=== PATIENT | male | born 1960 | race Caucasian/White ===

== ENCOUNTER → 2017-09-23 | Outpatient (CLI) | payer OTHER ==
[2017-09-23 09:22] LABS: ALT 39 U/L (21-72); AST 30 U/L (17-59); Alkaline Phosphatase 71 U/L (38-126); Anion Gap 7 mmol/L; Blood Urea Nitrogen 18 mg/dL (9-20); Calcium 9.8 mg/dL (8.4-10.2); Carbon Dioxide 31 mmol/L (22-30); Chloride 101 mmol/L (98-107); Cholesterol 120 mg/dL (<200); Glucose 122 mg/dL (74-99); HDL Cholesterol 57 mg/dL (40-60); LDL Cholesterol,Calculated 50 mg/dL (0-99); Potassium 4.4 mmol/L (3.5-5.1); Sodium 139 mmol/L (137-145); Total Bilirubin 0.4 mg/dL (0.2-1.3); Total Protein 6.7 g/dL (6.3-8.2); Triglycerides 63 mg/dL (<150)
== END | disposition home or self-care (01) ==
LOC: LABWHC1 08:09
PROVIDERS: ATTEND Internal Medicine Endocrinology, Diabetes & Metabolism
DX: E10.65 Type 1 diabetes mellitus with hyperglycemia (principal)
CPT/HCPCS: 36415; 80053; 80061; 82043; 82533; 82570; 84403; 84443

== ENCOUNTER 2018-08-28 21:01 | Emergency (ER) | payer OTHER ==
[2018-08-28 21:31] VITALS: BP 129/57; PULSE 104; RESP 18; TEMP 102.9
--- NOTE | 2018-08-28 21:56 | ED ---
General Adult HPI - General Chief complaint: Shortness of Breath Stated complaint: chest congestion/asthma Time Seen by Provider: 08/28/18 21:34 Source: patient Mode of arrival: ambulatory Limitations: no limitations - History of Present Illness Initial comments: Dictation was produced using [employer] dictation software. please excuse any grammatical, word or spelling errors. Chief Complaint: 57-year-old male with past medical history type 1 diabetes presents with persistent cough History of Present Illness: Patient is 57-year-old male. He is in town visiting family. Patient normally lives in [place]. Patient states that his symptoms began approximately one month ago. His symptoms consisted of clear rhinorrhea, cough and mild sore throat. States that he has a history of asthma as well. His asthma began acting up. Says primary care physician proximal one week after the onset of symptoms. His primary care physician started him on prednisone, and azithromycin. Patient just finished his antibiotics proximally one week ago. She was improved until about 2 days after that when he felt like his symptoms were recurring and have been slightly worse. He continue taking his Ventolin inhaler. 2 days ago he took 60 mg of prednisone that he had left over. He took another 40 mg of prednisone today. Patient is a frequent traveler and feels as though he is exposed to a lot of illnesses on airplane. The ROS documented in this emergency department record has been reviewed and confirmed by me. Those systems with pertinent positive or negative responses have been documented in the HPI. All other systems are other negative and/or noncontributory. PHYSICAL EXAM: General Impression: Alert and oriented x3, not in acute distress HEENT: Normocephalic atraumatic, extra-ocular movements intact, pupils equal and reactive to light bilaterally, mucous membranes moist. Cardiovascular: Heart regular rate and rhythm, S1&S2 audible, no murmurs, rubs or gallops Chest: Bilateral wheezing Abdomen: Bowel sounds present, abdomen soft, non-tender, non-distended, no organomegaly Musculoskeletal: Pulses present and equal in all extremities, no peripheral edema Motor: Power 5/5 bilaterally, no focal deficits noted Neurological: CN II-XII grossly intact, no focal motor or sensory deficits noted Skin: Intact with no visualized rashes Psych: Normal affect and mood ED course: 57-year-old male. He presents today with persistent coughing. He did have a convalescent face that occurred last week until when his symptoms abruptly recurred however felt to be a little bit worse than vital signs upon arrival shows temperature 12.9, heart rate of 104, rest of vital signs within acceptable limits.Patient's symptoms consistent with viral URI. Chest x-ray is unremarkable. There is no radiographic evidence of bacterial infection. No clinical symptoms or physical examination to suggest bacterial infection. Patient has acute exacerbation of asthma secondary to viral URI. He does have an inhaler at home. He does have prednisone at home. He is advised to continue taking his prednisone for another 2 days burst fashion. He does have good follow-up with primary care physician. Patient otherwise feeling well. Patient did request RSV test which was positive. He does have other children at home. This point patient doesn't have any localizing symptoms to indicate further workup. Patient states he can come back if anything changes. Patient understandable agreeable to plan. Patient be discharged. - Related Data Home Medications Medication Instructions Recorded Confirmed Atorvastatin [Lipitor] 40 mg PO HS 08/28/18 08/28/18 Insulin Lispro [humaLOG Kwikpen] See Protocol SQ ACHS 08/28/18 08/28/18 Insulin NPH Human Isophane See Protocol SQ DAILY 08/28/18 08/28/18 [humuLIN N] Psyllium Husk 100% [Metamucil 6 gm PO BID 08/28/18 08/28/18 Packet] Tadalafil [Cialis] 10 mg PO DAILY PRN 08/28/18 08/28/18 Vortioxetine Hydrobromide 5 mg PO HS 08/28/18 08/28/18 [Trintellix] Allergies Allergy/AdvReac Type Severity Reaction Status Date / Time chlorhexidine Allergy Rash/Hives Verified 08/28/18 22:00 Review of Systems ROS Statement: Those systems with pertinent positive or pertinent negative responses have been documented in the HPI. ROS Other: All systems not noted in ROS Statement are negative. Past Medical History Past Medical History: Asthma, Cancer, Diabetes Mellitus Additional Past Medical History / Comment(s): Diverticulitis History of Any Multi-Drug Resistant Organisms: None Reported Additional Past Surgical History / Comment(s): Skin cancer removal. Past Psychological History: Anxiety, Depression Smoking Status: Never smoker Past Alcohol Use History: Occasional Past Drug Use History: None Reported General Exam Limitations: no limitations Course Vital Signs 08/28/18 21:25 Temperature 102.9 F H Pulse Rate 104 H Respiratory 18 Rate Blood Pressure 129/57 O2 Sat by Pulse 94 L Oximetry Medical Decision Making - Lab Data Lab Results 08/28/18 Range/Units 22:02 RSV (PCR) Positive H (Negative) Disposition Clinical Impression: RSV (acute bronchiolitis due to respiratory syncytial virus), Asthma exacerbation Disposition: HOME SELF-CARE Instructions (If sedation given, give patient instructions): Asthma (ED) Is patient prescribed a controlled substance at d/c from ED?: No Referrals: Meli Damon MD [Primary Care Provider] - 1-2 days Time of Disposition: 23:06
--- NOTE | 2018-08-28 22:11 | XR ---
History: ITS.REASON XR Reason: Pain Exam: XR CXR 2 VIEWS Comparison: None available FINDINGS: The lungs are clear. The cardiac and mediastinal contours are within limits. The visualized osseous structures appear within limits. IMPRESSION: No evidence of acute disease.
== END 2018-08-28 23:10 | disposition home or self-care (01) ==
LOC: EC 21:01
DX: J45.901 Unspecified asthma with (acute) exacerbation (principal); J21.0 Acute bronchiolitis due to respiratory syncytial virus; E10.9 Type 1 diabetes mellitus without complications; F32.9 Major depressive disorder, single episode, unspecified; Z79.4 Long term (current) use of insulin; Z79.899 Other long term (current) drug therapy; Z88.8 Allergy status to other drugs, medicaments and biological substances; Z85.828 Personal history of other malignant neoplasm of skin
CPT/HCPCS: 71046; 87634; 99284

== ENCOUNTER → 2019-01-27 | Outpatient (CLI) | payer OTHER ==
[2019-01-27 18:16] LABS: African American GFR (CKD) 112.5 (60.0-200.0); Albumin 4.1 g/dL (3.80-4.90); Albumin/Globulin Ratio 1.95 (1.60-3.17); BUN/Creat Ratio 12.5 Ratio (12.00-20.00); Calcium 9.1 mg/dL (8.7-10.3); Globulin 2.1 g/dL (1.6-3.3); Potassium 4.7 mmol/L (3.5-5.5); Total Bilirubin 0.4 mg/dL (0.3-1.2); Total Protein 6.2 g/dL (6.2-8.2)
== END ==
LOC: LABWHC1 10:09
PROVIDERS: ATTEND Internal Medicine Endocrinology, Diabetes & Metabolism
DX: E10.65 Type 1 diabetes mellitus with hyperglycemia (principal)
CPT/HCPCS: 36415; 80053; 80061; 82043; 82570; 83036; 84443

== ENCOUNTER → 2020-02-19 | Outpatient (CLI) | payer OTHER ==
[2020-02-19 12:08] LABS: African American GFR (CKD) 111.7 (60.0-200.0); Albumin/Globulin Ratio 1.9 (1.60-3.17); Anion Gap 3.6 mmol/L (4.00-12.00); BUN/Creat Ratio 16.25 Ratio (12.00-20.00); Carbon Dioxide 28.4 mmol/L (21.6-31.8); Chol/HDL Ratio 2.44; Globulin 2.1 g/dL (1.6-3.3); LDL Cholesterol,Calculated 74.8 mg/dL (0.0-131.0); Non-African American GFR(CKD) 96.4 (60.0-200.0); Potassium 4.3 mmol/L (3.5-5.5); Total Bilirubin 0.5 mg/dL (0.2-1.2); Total Protein 6.1 g/dL (6.2-8.2); VLDL Calculation 13.2 mg/dL (5.00-40.00)
[2020-02-19 12:28] LABS: Hemoglobin A1C 7.3 % (4.0-6.0)
[2020-02-19 12:40] LABS: Microalbumin Creatinine Ratio <30 mg/g Creat (0-30); Urine Creatinine 101.3 mg/dL
== END | disposition home or self-care (01) ==
LOC: LABWHC1 07:13
PROVIDERS: ATTEND Internal Medicine Endocrinology, Diabetes & Metabolism
DX: E10.65 Type 1 diabetes mellitus with hyperglycemia (principal)
CPT/HCPCS: 36415; 80053; 80061; 82043; 82570; 83036; 84443

== ENCOUNTER → 2021-04-15 | Outpatient (CLI) | payer OTHER ==
[2021-04-16 03:08] LABS: Chol/HDL Ratio 2.47 Ratio; HDL Cholesterol 63.2 mg/dL (40.00-60.00); LDL Cholesterol,Calculated 80.1 mg/dL (0.0-131.0); Triglycerides 63.3 mg/dL (0.00-149.00); VLDL Calculation 12.66 mg/dL (5.00-40.00)
[2021-04-16 04:34] LABS: African American GFR (CKD) 127.2 (60.0-200.0); Albumin 4.1 g/dL (3.8-4.9); Albumin/Globulin Ratio 2.03 (1.60-3.17); Anion Gap 11.5 mmol/L (4.00-12.00); BUN/Creat Ratio 26.66 Ratio (12.00-20.00); Blood Urea Nitrogen 15.3 mg/dL (9.0-27.0); Carbon Dioxide 22.6 mmol/L (21.6-31.8); Non-African American GFR(CKD) 109.7 (60.0-200.0); Potassium 5.1 mmol/L (3.5-5.5); Total Bilirubin 0.3 mg/dL (0.30-1.20); Total Protein 6.2 g/dL (6.2-8.2)
[2021-04-16 05:53] LABS: Urine Creatinine 55.4 mg/dL (39.0-259.0)
== END | disposition home or self-care (01) ==
LOC: LABWHC1 11:49
PROVIDERS: ATTEND Internal Medicine Endocrinology, Diabetes & Metabolism
DX: E10.65 Type 1 diabetes mellitus with hyperglycemia (principal)
CPT/HCPCS: 36415; 80053; 80061; 82043; 82570; 83036; 84443